=== PATIENT | male | born 1985 | race Hispanic/Latino ===

== ENCOUNTER 2018-10-01 11:35 | Day surgery (SDC) | payer OTHER, SELFPAY ==
[2018-09-30 12:18] VITALS: BMI 25.0
[2018-10-01] VITALS (9 sets, daily range): BP systolic 100–117; BP diastolic 59–78; PULSE 68–86; RESP 10–18; TEMP 36.1–36.8; O2SAT 97–100; BMI 24.5
[2018-10-01] MEDS: LACTATED RINGERS 1,000 ML 42 ML IV (12:00)
--- NOTE | 2018-10-01 14:07 | PM.PREOP ---
Pre-operative Note Interval Note History & Physical reviewed/Exam performed by Physician: Yes Changes to H&P: No
--- NOTE | 2018-10-01 14:51 | SUR.PREOP ---
Pt transported to room % for block. Block start time [1431] . Monitoring initiated and maintained throughout procedure. Oxygen and medications given per anesthesiologist instructions. Patient remained stable throughout procedure, no adverse reactions noted. Block end time [1445]. Pt then taken to OS by EULALIO Mchugh
[2018-10-01] MEDS: CEFAZOLIN 2 GM/100 ML FROZ.PIGGY IV (14:55)
--- NOTE | 2018-10-01 15:22 | SUR.OPER ---
Prone on padded OR bed, head in foam head support, gel chest rolls, gel pad under knees, toes free of pressure, left leg is under control of surgeon, right leg is taped over the blanket to the table, few blankets placed under right leg, arms secured on padded arm boards at <90 degrees abduction. Safety belt at the back.
[2018-10-01] MEDS: BUPIVACAINE 0.25% (PF) VIAL 30 ML INJ (15:35)
--- NOTE | 2018-10-01 15:45 | PM.PROC.1 ---
Procedures Date/Time Date of procedure: 10/01/18 Time of procedure: 14:40 General Procedure description: Ultrasound guided popliteal sciatic nerve block for post op pain control after left achilles tendon repair by Dr. nAdres. Risk and benefits of procedure discussed with patient. ASA monitoring applied to patient. Oxygen given via nasal cannula. 2 mg Versed and 50 mcg fentanyl given for procedural sedation. Skin site was prepped with chlorhexidine and allowed to fully dry. Sterile gloves, mask, hat and probe cover were used to maintain sterility. 2% lidocaine and 30ga needle was used to make a small skin wheal at needle insertion site. Under ultrasound guidance, a 21ga 100mm Pajunk needle was directed near the division of the sciatic nerve into tibial and peroneal nerve in the popliteal fossa (lateral approach). After negative aspiration, 20 mL 0.5% ropivicaine and 10mg dexamethasone were injected around sciatic nerve. Patient tolerated procedure well.
--- NOTE | 2018-10-01 15:49 | P.PCN_ITS ---
Procedures Date/Time Date of procedure: 10/01/18 Time of procedure: 14:40 General Procedure description: Ultrasound guided popliteal sciatic nerve block for post op pain control after left achilles tendon repair by Dr. Andres. Risk and rj efits of procedure discussed with patient. ASA monitoring applied to patient. Oxygen given via nasal cannula. 2 mg Versed and 50 mcg fentanyl given for procedural sedation. Skin site was prepped with chlorhexidine and allowed to fully dry. Sterile gloves, mask, hat and probe cover were used to maintain sterility. 2% lidocaine and 30ga needle was used to make a small skin wheal at needle insertion site. Under ultrasound guidance, a 21ga 100mm Pajunk needle was directed near the division of the sciatic nerve into tibial and peroneal nerve in the popliteal fossa (lateral approach). After negative aspiration, 20 mL 0.5% ropivicaine and 10mg dexamethasone were injected around sciatic nerve. Patient tolerated procedure well.
--- NOTE | 2018-10-01 17:15 | P.OP_ITS ---
Operative Date/Time/Diagnoses Date of procedure: 10/01/18 Time of procedure: 16:17 Pre-op diagnosis: Traumatic rupture left Achilles tendon S86. 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 He had a moderate delayed diagnosis and presentation. He presented in flat sandals to his orthopedic evaluation. He had a palpable gap, loss of normal plantar flexion position and increased passive dorsiflexion and a Hurt test without plantar flexion on calf squeeze. The patient was counseled on the operative or nonoperative treatment of Achilles tendon ruptures. 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 We discussed that operative fixation typically results in earlier return to work and increased power. We discussed the risks benefits and alternatives to surgery including the risks of infection, nerve damage, wound dehiscence, re-rupture, incomplete relief of pain, inability to return to the patient's desired level of function, generalized dissatisfaction with the surgical procedure outcome, DVT, pulmonary embolism, cardiac and pulmonary complications, paralysis, stroke, . Patient understands the healing of soft tissues would take 3 months but full recovery is typically 6-9 months. The patient also understands that it is critical to elevate the extremity above the heart level for the 1st 2 weeks after surgery to help with pain and swelling. The patient was counseled that initially nonweightbearing will be allowed on the surgical leg until instructed use to safely initiate weight-bearing. The patient expressed full understanding of these issues and a informed consent for surgery was signed in the office. Surgeon: Gudelia Andres Click Yes if Unassisted: Yes Anesthesia Type: General and Peripheral nerve block Operative Notes Findings: A midsubstance Achilles tendon rupture was encountered approximately 4 cm above the insertion. 2 cm gap was present. This was repaired using a minimal open technique. Closure Type: primary Specimen(s): none sent Applied: other (Splint) Estimated Blood Loss (mL): 2 Blood products transfused: none Tourniquet time (min): 57 Procedure in detail: The patient was seen in the preoperative area and the informed consent was confirmed the patient's side and site of surgery were marked. Patient was then brought to the operating room. Postoperative block was performed by the anesthesia team for postoperative pain control. The patient was then placed under general anesthesia in the supine position. Tourniquet was placed on the upper aspect of the operative leg and well-padded. CT was placed on the contralateral extremity. Patient was then moved in the prone position on the operative table. The left lower extremity was prepped and draped in the standard sterile fashion. Formal time-out procedure was performed confirming the patient's site of surgery and site of surgery administration of appropriate preoperative antibiotics and presence of informed consent. All were in agreement. After exsanguination with an Esmarch the tourniquet was elevated to 250 mm of mercury and stayed there for 57 minutes. An approximately 3 cm incision was made just medial to the Achilles tendon in a longitudinal fashion. This was centered approximately 1 cm proximal to the location of the proximal rupture edge. No Dissection was carried out superficial to the paratenon. Paratenon was then incised. An allis clamp was used to isolate the end of the proximal tendon this was delivered into the wound. Mop ends were encountered. A [place] elevator was used inside the paratenon to mobilize the proximal remnant. Next attention was turned distally to the distal remnant. The ankle was put into plantar flexion to deliver the distal segment into the wound. This was found to be quite a short segment and in order to get a better access to that, the longitudinal incision was extended approximately 1 more cm distal making it a total of a 4 cm long. Again the [place] elevator was used to create a space inside the paratenon for the pars jig. Attention was then again returned proximally, the pars jig was slid around the proximal remnant inside that paratenon. once this was in position the#1 Needle was placed through the jig and this was left in place to hold position. The 2nd needle was then placed through the #2 hole. the #2 Suture was delivered followed by the #3, #4 and #5 Sutures and then finally the #1 Suture. Sutures were delivered through the paratenon and back out the wound and then the #2 Suture was wrapped around the #3 and #4 sutures twice and then through the loop to create the locked stitch. All of the sutures were tested further fixation in the proximal tendon. The #5 Transverse suture tore out to easily, therefore this was replaced and retested with good fixation. The same procedure was performed distally creating a total of 2 transverse sutures and 1 locked suture. Suture fixation was again tested manually and held well. The tendon ends were then approximated while the foot was held in maximal plantar flexion some redundant mop ends were trimmed and the sutures were tied. An additional #2 FiberWire was used to reinforce the repair. This restored excellent contour to the Achilles tendon. The Hurt test was once we have again performed and there was now a good plantar flexion with calf squeeze. The repair was additionally tested through range of motion with gentle dorsiflexion and no evidence of gapping. The tourniquet was released and hemostasis achieved. Wound was then irrigated. Paratenon was closed with 4 0 Maxon suture the subcutaneous with 4 0 Monocryl and skin with 3 O nylon suture. Appropriate resting tension had been restored and a bulky dressing was placed with a splint in plantar flexion. The patient was awoken from anesthesia and taken to the recovery room. There were no immediate complications of this procedure. All counts were correct. Complications: none Condition: stable Disposition: PACU Plan for aftercare: The patient will be strict elevation and strict nonweightbearing. He will be on aspirin 325 mg twice daily for DVT prophylaxis and encouraged to wiggle his toes and mobilize his other extremity to help with blood flow. Patient will follow up in 2 weeks time for suture removal. At that time the patient will be placed into a boot with heel lifts and initiate the functional protocol with early range of motion and progressive weight-bearing.
== END 2018-10-01 18:21 | disposition home or self-care (01) ==
PROVIDERS: Visit Provider Orthopaedic Surgery Foot and Ankle Surgery
PROC: (CPT 27650; principal; 2018-10-01 13:45)
DX: S86.012A Strain of left Achilles tendon, initial encounter (principal); G89.18 Other acute postprocedural pain; W50.1XXA Accidental kick by another person, initial encounter; Y93.66 Activity, soccer
CPT/HCPCS: 27650; 64445; 64450; J0690; J1100; J1885; J2250; J2405; J2704; J3010